=== PATIENT | male | born 1990 | race Caucasian/White ===

== ENCOUNTER → 2020-10-01 | Outpatient (CLI) | payer OTHER ==
[~2020-10-01] MED LIST: CALC250T PO; CYCL10TA2 PO; DULO60CA6 PO; GABA600T7 PO; METO10TA81 PO; MULT1CAP33 PO; OMEP40CA45 PO; TOPI50TA8 PO; TRAM50TA PO
--- NOTE | 2020-10-01 12:56 | PDOC1 ---
INITIAL PAIN CONSULT DATE OF SERVICE: DOS: DATE: 10/01/20 TIME: 12:49 CHIEF COMPLAINT: Chief Complaint: Low back and bilateral lower extremity pain HISTORY OF PRESENT ILLNESS: 29-year-old male presents with history of pain low back bilateral lower extremities for many years since about 2002 or 4 status post lumbar laminectomy 2018 with temporary relief of the pain but the pain returned fairly quickly within a year low back bilateral lower extremities posterior gluteus posterior thighs lateral thighs anterior thighs medial thighs especially on the left side slightly worse than the right but present bilaterally patient reports no specific injury or accident that he is aware of he is getting worse with time patient reports it is constant sharp and stabbing in the back throbbing in the lower extremities with numbness and radiating pain in the lower extremities aching and burning in the back as well as in the mid and upper back patient has had physical therapy trigger point injections counseling chiropractic treatment exercise which is ongoing also doing pool therapy at least once every week patient reports he also is taking cyclobenzaprine duloxetine and gabapentin as well as tramadol some of which help with the cyclobenzaprine tends not to tramadol as helpful but only temporarily. Patient reports it does awaken him from sleep at night approximate 3 times can affect his bowel bladder control but no loss of continence just increased frequency. Patient reports it does affect his ability to walk he is a walker at times did not have it with him on his visit today. Patient did have a MRI scan lumbar spine dated August 23, 2020 showing a postsurgical changes of laminectomy present at L2-3, L3-4, L4-5 and L5-S1 with decompression of the spinal canal with multiple spondylosis resulting in multilevel neuroforaminal narrowing most pronounced at L3-4 and L4-5. Patient reports no loss of motor function but significant fatigability in the lower extremity specially on the left. PAST MEDICAL HISTORY: PMH: Arthritis, obesity, hypertension PREVIOUS SURGERIES: Past Surgical Hx: Bariatric surgery 2018, laminectomy 2017, cholecystectomy 2019 CURRENT MEDICATIONS: Current Meds: Active Scripts Medications Dose Route/Sig Max Daily Dose Days Date Category Bariatric Mv-Iron 45 mg Cap (Multivit-Min/Iron/Folic Acid/K) 1 Each Capsule 2 Each PO DAILY 10/01/20 Reported Calcium Citrate 250 Mg Tablet 315 Mg PO BID 10/01/20 Reported Cymbalta (Duloxetine Hcl) 60 Mg Capsule. 1 Cap PO DAILY 10/01/20 Reported Cyclobenzaprine Hcl 10 Mg Tablet 1 Tab PO TID 10/01/20 Reported Reglan (Metoclopramide Hcl) 10 Mg Tablet 10 Mg PO Q6HRS 10/01/20 Reported Tramadol Hcl 50 Mg Tablet 50 Mg PO Q6HRS PRN 10/01/20 Reported Omeprazole 40 Mg Capsule.dr 1 Cap PO DAILY 10/01/20 Reported Topiramate 50 Mg Tablet 1 Tab PO BID 30 10/01/20 Reported Gabapentin 600 Mg Tablet 600 Mg PO TID 10/01/20 Reported ALLERGIES; Allergies: Coded Allergies: zinc (Verified Adverse Reaction, Intermediate, skin turns red, 10/01/20) FAMILY HISTORY: Family Hx: Heart disease, cancer, diabetes SOCIAL HISTORY: Social Hx: 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 REVIEW OF SYSTEMS: ROS: Positive for those items mentioned in history of present illness, all systems are reviewed, otherwise negative ,and are complete full and well-documented on patient's chart. PHYSICAL EXAM: VS: Blood pressure is 118/74 pulse 75 respirations 16 temperature 98.0 F height is 6 foot 1 inch weight is 217 pounds PE: PHYSICAL EXAMINATION: GENERAL: The patient is awake, alert, oriented, appropriate, very pleasant demeanor HEENT: Shows normocephalic, atraumatic. Extraocular movements are intact and symmetrical. Oral cavity: Mucous membranes moist and pink. Dentition is intact. NECK: Shows anterior throat supple without palpable lymphadenopathy noted. Swallow reflex symmetrical. CHEST: Shows normal on inspection. Breath sounds are clear bilaterally, no rales rhonchi or wheezes auscultated. HEART: Shows S1, S2 clear. No murmurs auscultated. ABDOMEN: Soft, nontender, nondistended, obese. No palpable organomegaly is noted. No rebound or guarding demonstrated. BACK: Shows spine grossly in the midline. Normal-appearing cervical lordotic curvature. There is slightly increased thoracic kyphosis, some minor flattening of the lumbar lordotic curvature. Well-healed surgical scarring is noted in the midline. Lumbar paraspinous muscles show symmetrical on inspection, on palpation shows some moderate tenderness diffusely throughout the upper, middle and lower distribution of the paraspinous muscles bilaterally and also into the lower thoracic paraspinous musculature, firm and tender, but without specific trigger points, without radiation of pain. The patient has good rotational motion of the lumbar spine, both laterally as well as extension and flexion without significant difficulty. No tenderness over the spinous processes, sacrum or sacroiliac regions. EXTREMITIES: Lower extremities show deep tendon reflexes 1+ in the patellar and tendo calcaneus tendons. Motor exam is 4 on a scale of 5 with right dorsiflexion, extension, quadriceps and hamstring flexion and 5/5 on the left. Peripheral pulses are 1+ posterior tibial. No peripheral edema is noted bilat erally. Lower extremities are warm and dry to touch, equal in color and appearance. Straight leg raise noted to be negative bilaterally. Gaenslen's and Eben's maneuvers are negative bilaterally as well. The patient is able to stand, stand on his toes without significant difficulty or loss of balance, walks with a slight shuffling gait does not appear to favor the right left lower extremity significantly is not use any assistive devices on his visit today. SKIN: Shows warm and dry, good turgor. No edema. No sores, rashes or bruising throughout. IMPRESSION: Impression: 29-year-old male with long history low back pain bilateral lower extremity pain, increasing over the past year or so without any specific injury or accident in a radicular fashion in the bilateral lower extremities. MRI scan lumbar spine as noted Arthritis Obesity Plan: Options were discussed with patient including conservative medical management physical therapies interventional techniques. Patient elects interventional techniques we discussed a lumbar epidural steroid injection using description as well as anatomical models described procedure. Patient will wait for preauthorization with his insurance provider once this is obtained we will have him return for a translaminar approach L3-4 level lumbar epidural steroid injection. In meantime patient will continue with stretching and strength exercises on his own pool therapy and oral analgesics as currently. ALIYA MCNAMARA MD October 01, 2020 12:56
== END | disposition home or self-care (01) ==
LOC: PNCL 09:27
PROVIDERS: ATTEND Anesthesiology
DX: M54.5 Low back pain (principal); M79.605 Pain in left leg; M79.604 Pain in right leg; M19.90 Unspecified osteoarthritis, unspecified site; E66.9 Obesity, unspecified; I10 Essential (primary) hypertension; Z90.49 Acquired absence of other specified parts of digestive tract; Z98.890 Other specified postprocedural states; Z79.899 Other long term (current) drug therapy; Z82.49 Family history of ischemic heart disease and other diseases of the circulatory system; Z83.3 Family history of diabetes mellitus; Z88.8 Allergy status to other drugs, medicaments and biological substances
CPT/HCPCS: 99214; G0463

== ENCOUNTER 2020-10-26 11:45 | Emergency (ER) | payer OTHER ==
[~2020-10-26] VITALS: Ht 185.4 cm; Wt 95.4 kg
[~2020-10-26 11:45] MED LIST changes: -OMEP40CA45 PO; +OMEP40CA7 PO
[2020-10-26] MEDS ORDERED: IV NORMAL SALINE 1000ML BAG 1,000 ML IV SCH (12:30)
[2020-10-26] MEDS ORDERED: ONDANSETRON PF 4 MG/2 ML VIAL. IVP ONE (12:30)
[2020-10-26] MEDS ORDERED: fentaNYL PF VIAL 100 MCG/2 ML VIAL IVP ONE (12:30)
[2020-10-26] MEDS ORDERED: DICYCLOMINE 20 MG/2 ML VIAL. IM ONE (12:30)
--- NOTE | 2020-10-26 12:32 | PHYS DOC ---
Past Medical History Past Medical History: Other Additional Past Medical Histor: JOINT/BACK PAIN,MOOD Past Surgical History: Cholecystectomy, Other Additional Past Surgical Histo: BACK/BARIATRIC SURG Smoking Status: Never Smoker Alcohol Use: None General Adult EDM: Chief Complaint: RECTAL BLEED HPI: HPI: Patient is a 29 year old male who presents with about an hour ago he began having multiple stools with a larger amount of blood than usual. He states for the last 2 months he has been having frequent stools with intermittent blood. He states today which is more than usual. States he gets intermittent sharp pains in his lower abdomen that was a 6 out of 10 when he first got here but has gone down to 2 out of 10. States he has some nausea but no vomiting. He does have a colonoscopy set up with Dr. Pichardo on November 05. He does have family history of colon cancer and Crohn's. He denies chest pain, shortness of breath, fever, vomiting, headache, dizziness, focal weakness, numbness or tingling. He currently has a history of joint and back pain, mood disorder, cholecystectomy, bariatric surgery. Review of Systems: Review of Systems: Constitutional: Denies fever or chills. [] Eyes: Denies change in visual acuity. [] HENT: Denies nasal congestion or sore throat. [] Respiratory: Denies cough or shortness of breath. [] Cardiovascular: Denies chest pain or edema. [] GI: + abdominal pain, +nausea, denies vomiting, +bloody stools or +diarrhea. [] : Denies dysuria. [] Musculoskeletal: Denies back pain or joint pain. [] Integument: Denies rash. [] Neurologic: Denies headache, focal weakness or sensory changes. [] Endocrine: Denies polyuria or polydipsia. [] Lymphatic: Denies swollen glands. [] Psychiatric: Denies depression or anxiety. [] Heart Score: C/O Chest Pain: No Risk Factors: Risk Factors: DM, Current or recent (<one month) smoker, HTN, HLP, family history of CAD, obesity. Risk Scores: Score 0 - 3: 2.5% MACE over next 6 weeks - Discharge Home Score 4 - 6: 20.3% MACE over next 6 weeks - Admit for Clinical Observation Score 7 - 10: 72.7% MACE over next 6 weeks - Early Invasive Strategies Allergies: Allergies: Allergies Coded Allergies Type Severity Reaction Last Updated Verified zinc Adverse Reaction Intermediate skin turns red 10/01/20 Yes Physical Exam: PE: Constitutional: Well developed, well nourished, no acute distress, non-toxic appearance. [] HENT: Normocephalic, atraumatic, bilateral external ears normal, oropharynx moist, no oral exudates, nose normal. [] Eyes: PERRLA, EOMI, conjunctiva normal, no discharge. [] Neck: Normal range of motion, no tenderness, supple, no stridor. [] Cardiovascular:Heart rate regular rhythm, no murmur [] Lungs & Thorax: Bilateral breath sounds clear to auscultation [] Abdomen: Bowel sounds normal, soft, lower mid tenderness, no masses, no pu lsatile masses. [] Skin: Warm, dry, no erythema, no rash. [] Back: No tenderness, no CVA tenderness. [] Extremities: No tenderness, no cyanosis, no clubbing, ROM intact, no edema. [] Neurologic: Alert and oriented X 3, normal motor function, normal sensory function, no focal deficits noted. [] Psychologic: Affect normal, judgement normal, mood normal. [] Current Patient Data: Vital Signs: Vital Signs Date Time Temp Pulse Resp B/P (MAP) Pulse Ox O2 Delivery O2 Flow Rate FiO2 10/26/20 11:50 98.1 83 17 133/85 (101) 100 Room Air 98.1 EKG: EKG: [] Radiology/Procedures: Radiology/Procedures: [] Impression: [facility] [address] [place], [place] [id number] IMAGING REPORT Signed PATIENT: SHYAM BLAKE ACCOUNT: [id number] : 1990 LOCATION: ER AGE: 29 SEX: M EXAM STATUS: REG ER ORD. PHYSICIAN: ALIYAH BETHEA APRN REASON: ABDOMINAL PAIN, DIARRHEA, RECTAL BLEEDING PROCEDURE: CT ABD PELV W/ IV CONTRST ONLY EXAMINATION: CT abdomen and pelvis with IV contrast. INDICATION:29 years, Male, presented with abdominal pain the area and rectal bleeding.. TECHNIQUE: Axial CT images of the abdomen and pelvis were obtained. Coronal and sagittal reformatted performed. COMPARISON: None. Exposure: One or more of the following individualized dose reduction techniques were utilized for this examination: 1. Automated exposure control 2. Adjustment of the mA and/or kV according to patient size 3. Use of iterative reconstruction technique. FINDINGS: LOWER CHEST: Unremarkable ABDOMEN/PELVIS: Liver, spleen, pancreas, adrenals and biliary ducts are unremarkable. Cholecystectomy. No hydronephrosis or nephrolithiasis in either kidney. Subcentimeter hypodensity in the lower pole right kidney, too small to characterize, statistically representing cyst. There is a 1.6 cm hypodense lesion in the interpolar right kidney, most consistent with simple cyst. Postsurgical changes of Roderick-en-Y gastric bypass. No bowel dilation or wall thickening. Appendix is normal. Normal caliber abdominal aorta. No abdominopelvic lymphadenopathy by size criteria. Unremarkable urinary bladder and prostate. No suspicious pelvic masses. MUSCULOSKELETAL: No active changes in the lumbar spine. No acute osseous process or suspicious lesion. Mild diffuse anasarca. IMPRESSION: 1. No acute abnormality in the abdomen or pelvis. 2. Postsurgical changes of Roderick-en-Y gastric bypass, without complication. Electronically signed by: Faisal Madrigal MD (10/26/2020 1:30 PM) [id number] DICTATED and SIGNED BY: FAISAL MADRIGAL MD DATE: 10/26/20 [id number] 0 Course & Med Decision Making: Course & Med Decision Making Pertinent Labs and Imaging studies reviewed. (See chart for details) See HPI. Alert and oriented x4. Ambulatory with a steady gait. Speaks in full clear sentences. Vital signs are within normal limits. Skin pink warm and dry. Abdominal tenderness to low mid abdomen. He is afebrile. Rectal Exam: Normal tone, No mass, Positive control Stool: Brown Guaiac: Negative [] Dragon Disclaimer: Dragon Disclaimer: This electronic medical record was generated, in whole or in part, using a voice recognition dictation system. Departure Departure Impression: Primary Impression: Abdominal pain Qualified Codes: R10.84 - Generalized abdominal pain Additional Impression: Rectal bleeding Disposition: HOME / SELF CARE / HOMELESS Condition: STABLE Referrals: BAILEY EVERETT MD (PCP) STEVEN PICHARDO MD Patient Instructions: Abdominal Pain (Nonspecific), Rectal Bleeding, [id number] Additional Instructions: Follow-up with GI as scheduled. Drink plenty of fluids. If anything worsens he can Sandro come back. ALIYAH BETHEA APRN Oct 26, 2020 12:32
[2020-10-26 12:43] LABS: BASO # 0.1 x10^3/uL (0.0-0.2); BASO % 1 % (0-3); EOS # 0.2 x10^3/uL (0.0-0.7); EOS % 3 % (0-3); HEMATOCRIT 44.7 % (39.0-53.0); HEMOGLOBIN 15.9 g/dL (13.0-17.5); LYMPH % 37 % (24-48); MEAN CORPUSCULAR HEMOGLOBIN 33 pg (25-35); MEAN CORPUSCULAR HGB CONC 36 g/dL (31-37); MEAN CORPUSCULAR VOLUME 93 fL (79-100); MONO # 0.5 x10^3/uL (0.0-1.1); MONO % 6 % (0-9); NEUT # 4.4 x10^3/uL (1.8-7.7); NEUT % 54 % (31-73); PLATELET COUNT 239 x10^3/uL (140-400); RED CELL DISTRIBUTION WIDTH 12.9 % (11.5-14.5); WHITE BLOOD COUNT 8.3 x10^3/uL (4.0-11.0)
[2020-10-26] MEDS ORDERED: IOHEXOL 300 MG/ML 100ML VIAL. IV ONE (12:45)
[2020-10-26 12:47] LABS: BILIRUBIN,URINE NEGATIVE (NEG); CLARITY,URINE CLEAR; COLOR,URINE YELLOW; NITRITE,URINE NEGATIVE (NEG); PH,URINE 7.5 (<5.0-8.0); PROTEIN,URINE NEGATIVE (NEG-TRACE)
[2020-10-26 12:51] LABS: FECAL OB PT NEGATIVE (NEG)
[2020-10-26 12:51] LABS: CALCIUM 9.8 mg/dL (8.5-10.1); CREATININE 0.9 mg/dL (0.7-1.3); GFR 99.1; POTASSIUM 3.8 mmol/L (3.5-5.1)
[2020-10-26 12:55] LABS: BACTERIA,URINE 0 /HPF (0-FEW); RBC,URINE 0 /HPF (0-2); WBC,URINE 0 /HPF (0-4)
[2020-10-26 12:58] LABS: ALBUMIN 4.6 g/dL (3.4-5.0); ALBUMIN/GLOBULIN RATIO 1.5 (1.0-1.7); TOTAL BILIRUBIN 0.5 mg/dL (0.2-1.0); TOTAL PROTEIN 7.6 g/dL (6.4-8.2)
[2020-10-26] MEDS ORDERED: CONTRAST GIVEN. MC PRN (13:00)
--- NOTE | 2020-10-26 13:33 | RAD ---
EXAMINATION: CT abdomen and pelvis with IV contrast. INDICATION:29 years, Male, presented with abdominal pain the area and rectal bleeding.. TECHNIQUE: Axial CT images of the abdomen and pelvis were obtained. Coronal and sagittal reformatted performed. COMPARISON: None. Exposure: One or more of the following individualized dose reduction techniques were utilized for thi s examination: 1. Automated exposure control 2. Adjustment of the mA and/or kV according to patient size 3. Use of iterative reconstruction technique. FINDINGS: LOWER CHEST: Unremarkable ABDOMEN/PELVIS: Liver, spleen, pancreas, adrenals and biliary ducts are unremarkable. Cholecystectomy. No hydronephro sis or nephrolithiasis in either kidney. Subcentimeter hypodensity in the lower pole right kidney, to o small to characterize, statistically representing cyst. There is a 1.6 cm hypodense lesion in the i nterpolar right kidney, most consistent with simple cyst. Postsurgical changes of Roderick-en-Y gastric b ypass. No bowel dilation or wall thickening. Appendix is normal. Normal caliber abdominal aorta. No a bdominopelvic lymphadenopathy by size criteria. Unremarkable urinary bladder and prostate. No suspici ous pelvic masses. MUSCULOSKELETAL: No active changes in the lumbar spine. No acute osseous process or suspicious lesion. Mild diffuse an asarca. IMPRESSION: 1. No acute abnormality in the abdomen or pelvis. 2. Postsurgical changes of Roderick-en-Y gastric bypass, without complication. Electronically signed by: Kulwinder Madirgal MD (10/26/2020 1:30 PM) [id number]
[2020-10-26 13:43] VITALS: BP 111/67
== END 2020-10-26 14:06 | disposition home or self-care (01) ==
LOC: ER 11:45
DX: R10.84 Generalized abdominal pain (principal); K62.5 Hemorrhage of anus and rectum; Z90.49 Acquired absence of other specified parts of digestive tract; Z98.84 Bariatric surgery status
CPT/HCPCS: 36415; 74177; 80053; 81001; 82274; 83690; 85025; 96361; 96372; 96374; 96375; 99285; J0500; J2405; J3010; J7030; Q9967

== ENCOUNTER → 2020-11-05 | Day surgery (SDC) | payer OTHER ==
[~2020-11-05] VITALS: Ht 185.4 cm; Wt 198.0 kg
[~2020-11-05] MED LIST changes: +HYDR-2761 PO; +HYDROmorphone 2 MG/ML VIAL IVP PRN; +IV RINGERS,LACTATED 1000ML 1,000 ML IV SCH; +LIDOCAINE 2% PF 5 ML VIAL. ONE; +MORPHINE SULFATE 2 MG/ML VIAL. IVP PRN; +ONDA4TAB7 PO; +PROPOFOL 10 MG/ML (20ML) VIAL. IV ONE; +fentaNYL PF VIAL 100 MCG/2 ML VIAL IVP PRN
[2020-11-05 06:54] VITALS: BP 110/71
[2020-11-05 08:33] VITALS: BP 116/72
--- NOTE | 2020-11-09 18:34 | PATHOLOGY ---
[facility] Accession Number: [id number] . 01 Material submitted: . sigmoid colon - SIGMOID POLYP . 01 Clinical history: . RECTAL BLEEDING COLONOSCOPY . 02 Diagnosis: Sigmoid colon polypectomy: - Pedunculated tubular adenoma. ([facility]; 11/09/2020) S 11/09/2020 1701 Local . 02 Comment: There is no high grade dysplasia or evidence of malignancy. The base of the polyp appears to be lined by normal colonic mucosa. . 02 Electronically signed: . Blu Ann MD, Pathologist NPI- [id number] . 01 Gross description: . Received in formalin labeled "Ag, Sawyer, sigmoid polyp" is a lozano-brown nodular mucosal polyp received in 2 pieces measuring 1.3 x 0.8 x 0.7 cm and 1.1 x 1.0 x 0.6 cm. The margins are inked and the pieces are sectioned and submitted in cassettes A1-A2. ([facility]; 11/07/2020) [facility] 11/07/2020 1231 Local . 02 Pathologist provided ICD-10: D12.5 . 02 CPT . 950963 Specimen Comment: A courtesy copy of this report has been sent to [phone], [phone] Specimen Comment: [id number] Specimen Comment: Report sent to / DR EVERETT Performed at: 01 [facility] [address], [place] [id number] MD Jared Hood MD Phone: [phone] Performed at: 02 [facility] [address] [place], [place] [id number] MD Blu Ann MD Phone: [phone]
== END | disposition home or self-care (01) ==
LOC: SURG 06:26
PROVIDERS: ATTEND Internal Medicine Gastroenterology
DX: K92.1 Melena (principal); K57.30 Diverticulosis of large intestine without perforation or abscess without bleeding; K64.0 First degree hemorrhoids; D12.5 Benign neoplasm of sigmoid colon; K63.89 Other specified diseases of intestine; G47.30 Sleep apnea, unspecified; M19.90 Unspecified osteoarthritis, unspecified site; Z90.49 Acquired absence of other specified parts of digestive tract; Z98.890 Other specified postprocedural states; Z79.899 Other long term (current) drug therapy; Z88.8 Allergy status to other drugs, medicaments and biological substances
CPT/HCPCS: 45385; J2704; 88305

== ENCOUNTER 2020-11-11 08:32 | Emergency (ER) | payer OTHER ==
[~2020-11-11] VITALS: Ht 177.8 cm; Wt 92.5 kg
[~2020-11-11 08:32] MED LIST changes: -HYDR-2761 PO; -HYDROmorphone 2 MG/ML VIAL IVP PRN; -IV RINGERS,LACTATED 1000ML 1,000 ML IV SCH; -LIDOCAINE 2% PF 5 ML VIAL. ONE; -MORPHINE SULFATE 2 MG/ML VIAL. IVP PRN; -ONDA4TAB7 PO; -PROPOFOL 10 MG/ML (20ML) VIAL. IV ONE; -fentaNYL PF VIAL 100 MCG/2 ML VIAL IVP PRN
--- NOTE | 2020-11-11 09:08 | PHYS DOC ---
Past Medical History Past Medical History: Other Additional Past Medical Histor: JOINT/BACK PAIN,MOOD Past Surgical History: Cholecystectomy, Other Additional Past Surgical Histo: BACK/BARIATRIC SURG Smoking Status: Never Smoker Alcohol Use: None Drug Use: None General Adult EDM: Chief Complaint: ABDOMINAL PAIN HPI: HPI: This is a pleasant 29-year-old male with a history of bariatric surgery and over the past 2 weeks has been having stomach issues with epigastric/left upper quadrant abdominal pain and blood in his stools over the past 2 weeks. He has been referred and had a colonoscopy but has not gotten the results back yet. This morning the patient's pain was worse. He has a sharp shooting pain in the left upper quadrant which is nonradiating and nonmigratory. It is associated with nausea worse with food. He denies any fevers chest pain or shortness of breath. Review of systems negative for rash headache chest pain. Positive for bowel movement today. He denies changes in his urinary habits. all other review of systems negative. Heart Score: C/O Chest Pain: No Risk Factors: Risk Factors: DM, Current or recent (<one month) smoker, HTN, HLP, family history of CAD, obesity. Risk Scores: Score 0 - 3: 2.5% MACE over next 6 weeks - Discharge Home Score 4 - 6: 20.3% MACE over next 6 weeks - Admit for Clinical Observation Score 7 - 10: 72.7% MACE over next 6 weeks - Early Invasive Strategies Current Medications: Current Medications Medications (Trade) Dose Ordered Sig/[facility] Start Time Stop Time Status Last Admin Dose Admin Hydromorphone HCl (Dilaudid) 0.5 mg PRN Q1HR PRN 11/11/20 09:15 UNV Ondansetron HCl (Zofran) 4 mg 1X ONCE 11/11/20 09:15 11/11/20 09:16 UNV Sodium Chloride 1,000 ml @ 1,000 mls/hr Q1H 11/11/20 09:15 11/11/20 10:14 UNV Allergies: Allergies: Allergies Coded Allergies Type Severity Reaction Last Updated Verified zinc Adverse Reaction Intermediate skin turns red 11/05/20 Yes Physical Exam: PE: Constitutional: Well developed, well nourished, no acute distress, non-toxic farhana earance. [] HENT: Normocephalic, atraumatic, bilateral external ears normal, oropharynx moist, no oral exudates, nose normal. [] Eyes: PERRLA, EOMI, conjunctiva normal, no discharge. [] Neck: Normal range of motion, no tenderness, supple, no stridor. [] Cardiovascular:Heart rate regular rhythm, no murmur [] Lungs & Thorax: Bilateral breath sounds clear to auscultation [] Abdomen: Bowel sounds normal, soft, mild tenderness in the left upper quadrant without rebound tenderness or guarding. no masses, no pulsatile masses. [] Negative McBurney's point. Skin: Warm, dry, no erythema, no rash. [] Back: No tenderness, no CVA tenderness. [] Extremities: No tenderness, no cyanosis, no clubbing, ROM intact, no edema. [] Neurologic: Alert and oriented X 3, normal motor function, normal sensory function, no focal deficits noted. [] Psychologic: Affect normal, judgement normal, mood normal. [] EKG: EKG: [] Radiology/Procedures: Radiology/Procedures: [] Course & Med Decision Making: Course & Med Decision Making Pertinent Labs and Imaging studies reviewed. (See chart for details) [] 29-year-old male with abdominal pain afebrile with a normal blood pressure. Well-appearing on exam. CBC unremarkable. Chemistry panel unremarkable. Urinalysis shows trace ketones. Not suggestive of acute infection. CT abdomen pelvis shows no acute abnormalities. Bilateral kidney lesions need outpatient ultrasound follow-up within 7 days. High density object in the sigmoid colon not related the patient's pain. Patient informed. Will discharge to follow-up with PCP in 1 to 2 days. The patient has been examined and was not found to have an emergency medical condition. The patient was then discharged home in stable condition to follow up with their primary care physician over the next 1- 2 days. They were to return if their symptoms worsened or if they were concerned for any reason. They were also instructed to return to the emergency department if they were unable to get the recommended and appropriate follow-up. [id number] discharge instructions and return precautions were given. Chica ent's questions were answered to their satisfaction. Patient is comfortable with plan. Caron Disclaimer: Caron Disclaimer: This electronic medical record was generated, in whole or in part, using a voice recognition dictation system. Departure Departure Impression: Primary Impression: Abdominal pain Disposition: HOME / SELF CARE / HOMELESS Condition: STABLE Referrals: BAILEY EVERETT MD (PCP) Patient Instructions: Abdominal Pain (Nonspecific) Additional Instructions: EMERGENCY DEPARTMENT GENERAL DISCHARGE INSTRUCTIONS Follow-up with your primary physician in 1 to 2 days. Return to the emergency department if you have any new or concerning findings. -You have bilateral low-density lesions in your kidneys that need ultrasound within the next 7 days -You have a high density linear object in your sigmoid colon. This should pass without difficulty. Follow-up with PCP to monitor this outpatient. Thank you for coming to [facility] Emergency Department (ED) today and trusting us with you care. We trust that you had a positive experience in our Emergency Department. If you wish to speak to the department management, you may call the Director at [phone]. Follow up is important in emergency/acute care visits. This condition should be evaluated by your primary care physician and any necessary consulting services for continued management within a few days (1-2) after discharge. Return to the emergency department if you have any new or concerning symptoms including but not limited to fever, chills, nausea, vomiting, intractable pain, any new rashes, chest pain, shortness of breath, uncontrolled bleeding, difficulty breathing, and/or vision loss. 1. Do you have a private Doctor? If you do not have a private doctor, please ask for a resource list of physicians or clinics that may be able to assist you with follow up care. 2. If a lab test or culture has been done and does not come back immediately, your results will be reviewed and you will be notified if you need a change in treatment. 3. Your care today has been supervised by a physician who is specially trained in emergency care. Many problems require more than one evaluation for a complete diagnosis and treatment. We recommend that you schedule your follow up appointment as recommended to ensure complete treatment of you illness or injury. If you are unable to obtain follow up care and continue to have a problem, or if your condition worsens, we recommend that you return to the ED. 4. We are not able to safely determine your condition over the phone nor are we able to give sound medical advice over the phone. For these safety reasons, if you call for medical advice we will ask you to come to the ED for further evaluation. IF YOUR SYMPTOMS WORSEN OR NEW SYMPTOMS DEVELOP, OR YOU HAVE CONCERNS ABOUT YOUR CONDITION; OR IF YOUR CONDITION WORSENS WHILE YOU ARE WAITING FOR YOUR FOLLOW UP APPOINTMENT; EITHER CONTACT YOUR PRIMARY CARE DOCTOR, THE PHYSICIAN WHOSE NAME AND NUMBER YOU WERE GIVEN, OR RETURN TO THE ED IMMEDIATELY. Scripts Ondansetron Hcl (ZOFRAN) 4 Mg Tablet 1 TAB PO Q8HRS PRN for NAUSEA, #8 TAB 0 Refills Prov: YULIET FISCHER MD 11/11/20 Hydrocodone Bit/Acetaminophen (HYDROCODONE-APAP 5-325 ) 1 Tab Tablet 1 TAB PO PRN Q8HRS PRN for sev, #8 TAB 0 Refills Prov: YULIET FISCHER MD 11/11/20 YULIET FISCHER MD Nov 11, 2020 09:08
[2020-11-11] MEDS ORDERED: HYDROmorphone 2 MG/ML VIAL IV/SQ PRN (09:15)
[2020-11-11] MEDS ORDERED: IV NORMAL SALINE 1000ML BAG 1,000 ML IV SCH (09:15)
[2020-11-11 09:16] LABS: BILIRUBIN,URINE SMALL (NEG); CLARITY,URINE CLEAR; COLOR,URINE AMBER; NITRITE,URINE NEGATIVE (NEG); PH,URINE 7.5 (<5.0-8.0); PROTEIN,URINE NEGATIVE (NEG-TRACE)
[2020-11-11 09:22] LABS: BASO # 0.1 x10^3/uL (0.0-0.2); BASO % 1 % (0-3); EOS # 0.2 x10^3/uL (0.0-0.7); EOS % 2 % (0-3); HEMATOCRIT 39.3 % (39.0-53.0); HEMOGLOBIN 14.3 g/dL (13.0-17.5); LYMPH # 2.5 x10^3/uL (1.0-4.8); LYMPH % 33 % (24-48); MEAN CORPUSCULAR HEMOGLOBIN 34 pg (25-35); MEAN CORPUSCULAR HGB CONC 36 g/dL (31-37); MEAN CORPUSCULAR VOLUME 93 fL (79-100); MONO # 0.6 x10^3/uL (0.0-1.1); MONO % 7 % (0-9); NEUT # 4.3 x10^3/uL (1.8-7.7); NEUT % 57 % (31-73); PLATELET COUNT 211 x10^3/uL (140-400); RED BLOOD COUNT 4.25 x10^6/uL (4.30-5.70); RED CELL DISTRIBUTION WIDTH 12.5 % (11.5-14.5); WHITE BLOOD COUNT 7.6 x10^3/uL (4.0-11.0)
[2020-11-11 09:31] LABS: CALCIUM 9.2 mg/dL (8.5-10.1); GFR 87.7; POTASSIUM 4.5 mmol/L (3.5-5.1)
[2020-11-11 09:32] LABS: BACTERIA,URINE 0 /HPF (0-FEW); RBC,URINE 0 /HPF (0-2); WBC,URINE 0 /HPF (0-4)
[2020-11-11 09:38] LABS: ALBUMIN 4.4 g/dL (3.4-5.0); DIRECT BILIRUBIN 0.1 mg/dL (0.0-0.2); TOTAL BILIRUBIN 0.6 mg/dL (0.2-1.0); TOTAL PROTEIN 6.7 g/dL (6.4-8.2)
[2020-11-11] MEDS ORDERED: CONTRAST GIVEN. MC PRN (09:45)
[2020-11-11] MEDS ORDERED: ONDANSETRON PF 4 MG/2 ML VIAL. IV ONE (09:45)
[2020-11-11] MEDS ORDERED: IOHEXOL 300 MG/ML 100ML VIAL. IV ONE (09:45)
--- NOTE | 2020-11-11 10:07 | RAD ---
INDICATION: Reason: ABD pain rlq / Spl. Instructions: omni 300 75ml / History: . COMPARISON: October 26, 2020 TECHNIQUE: Axial CT images obtained through the abdomen and pelvis with contrast. One or more of the following individualized dose reduction techniques were utilized for this examinat ion: 1. Automated exposure control; 2. Adjustment of the mA and/or kV according to patient size; 3 . Use of iterative reconstruction technique. FINDINGS: 4 mm nodule at right lung base which is typically benign in a patient of this age. Abdominal aorta is not aneurysmal. Postoperative changes status post gastric bypass. Postcholecystectomy changes with prominence of the bile ducts. No peripancreatic fluid collection. Spleen prominent in size. Nodular thickening of the left adrenal gland up to about 15 mm. Low-density lesion of the left kidney measuring 17 mm. No hydronephrosis. Urinary bladder has minimal urine within it at time of exam. Linear metallic density structure seen within the sigmoid colon measuring approximately 19 mm. 10 mm suspected low-density lesion right kidney. Edema of soft tissues. No periappendiceal inflammatory changes. No dilated loops of bowel to suggest obstruction. Postoperative changes to the lumbar spine with posterior decompression. Multiple disc protrusions and osteophyte formation within the lumbar spine. IMPRESSION: * No evidence of appendicitis or bowel obstruction. * Bilateral low-density lesions within the kidneys. In a patient of this age this would most commonl y be benign in nature but these measure higher than simple cystic density. If further clarification i s desired a nonemergent ultrasound could further assess for complex component. * Within the sigmoid there is a linear high density structure seen which could be metallic or calcif ic given the high density. Possible causes would include a clip in the area as well as ingested objec t. Electronically signed by: Arnaud Landry MD (11/11/2020 10:05 AM) [id number]
[2020-11-11] MEDS ORDERED: ONDA4TAB7 PO (10:28)
[2020-11-11] MEDS ORDERED: HYDR-2761 PO (10:28)
[2020-11-11 10:42] VITALS: BP 121/73
[2020-11-11] MEDS ORDERED: METOCLOPRAMIDE HCL 10 MG/2 ML VIAL. IVP ONE (11:00)
== END 2020-11-11 10:50 | disposition home or self-care (01) ==
LOC: ER 08:32
DX: R10.12 Left upper quadrant pain (principal); K92.1 Melena; R11.0 Nausea; Z90.49 Acquired absence of other specified parts of digestive tract; Z88.8 Allergy status to other drugs, medicaments and biological substances
CPT/HCPCS: 36415; 74177; 80048; 80076; 81001; 83690; 85025; 87086; 96361; 96374; 96375; 99285; J1170; J2405; J2765; J7030; Q9967; 96376